=== PATIENT | male | born 1955 | race Caucasian/White ===

== ENCOUNTER 2016-06-24 | Emergency (ER) | payer OTHER | END 2016-06-24 16:42 | disposition home or self-care (01) ==

== ENCOUNTER 2021-06-14 17:02 | Emergency (ER) | payer MEDICARE, OTHER ==
[2021-06-14 17:17] VITALS: BP 200/100
[2021-06-14] MEDS ORDERED: predniSONE 20 MG TABLET PO STA (18:34)
--- NOTE | 2021-06-14 18:37 | ED Physician Documentation ---
History of Present Illness - Stated complaint Stated Complaint: RASH - Chief complaint Chief Complaint: General - History obtained from History obtained from: Patient - History of Present Illness Timing: Today Pain level max: 0 Pain level now: 0 - Additonal information Additional information: Patient is a 66-year-old male who presents to the emergency department complaint of a rash to the bilateral feet, lower legs, bilateral arms and back that started last night. Increased itching today. Has not taken anything for this. Nothing makes it better or worse. No new soaps, detergents, medications. He states he did eat a ice cream sandwich that had been by several years. Review of Systems Constitutional: denies: Fever, Chills Cardiac: denies: Chest pain / pressure, Palpitations Respiratory: denies: Cough GI: denies: Vomiting, Diarrhea Musculoskeletal: denies: Neck pain, Back pain Neurologic: denies: Headache PD PAST MEDICAL HISTORY - Past Medical History Cardiovascular: Hypertension - Present Medications Home Medications: Ambulatory Orders Medication Instructions Recorded Confirmed Aspirin [Aspirin EC] 81 mg PO DAILY 06/24/16 06/24/16 Metoprolol Tartrate 100 mg PO DAILY 06/24/16 06/24/16 Nifedipine [Nifedipine ER] 90 mg PO DAILY 06/24/16 06/24/16 Simvastatin [Zocor] 20 mg PO DAILY 06/24/16 06/24/16 Telmisartan/Hydrochlorothiazid 1 tab PO DAILY 06/24/16 06/24/16 [Micardis Hct 80-25 mg Tablet] predniSONE [Deltasone] 10 mg PO [id number] #42 tab 06/14/21 - Allergies Allergies/Adverse Reactions: Allergies Allergy/AdvReac Type Severity Reaction Status Date / Time No Known Drug Allergies Allergy Verified 06/14/21 17:13 - Social History Does the pt smoke?: Yes Smoking Status: Current every day smoker Does the pt drink ETOH?: No Does the pt have substance abuse?: No - Immunizations Immunizations are current?: Yes - POLST Patient has POLST: No PD ED PE NORMAL - Vitals Vital signs reviewed: Yes - General General: Alert and oriented X 3, No acute distress - HEENT HEENT: Moist mucous membranes - Neck Neck: Supple, no meningeal sign - Cardiac Cardiac: RRR - Respiratory Respiratory: No respiratory distress, Clear bilaterally - Derm Derm: Warm and dry, Other (There is a erythematous, blanching maculopapular exanthem over the bilateral lower legs, forearms and back. No pustules or blisters. No vesicles) - Neuro Neuro: Alert and oriented X 3 - Psych Psych: Normal mood, Normal affect Results - Vitals Vitals: Vital Signs - 24 hr 06/14/21 17:13 Temperature 36.5 C Heart Rate 100 Respiratory 16 Rate Blood Pressure 200/100 H O2 Saturation 97 Oxygen O2 Source Room air PD MEDICAL DECISION MAKING - ED course Complexity details: considered differential, d/w patient ED course: Patient with a rash of unclear etiology. We will trial him on steroids and see how he progresses. Patient is well-appearing, nontoxic. Afebrile. Patient counseled regarding signs and symptoms for which I believe and urgent re- evaluation would be necessary. Patient with good understanding of and agreement to plan and is comfortable going home at this time This document was made in part using voice recognition software. While efforts are made to proofread this document, sound alike and grammatical errors may occur. Departure - Departure Disposition: 01 Home, Self Care Clinical Impression: Dermatitis Condition: Good Instructions: ED Dermatitis Non Specific Rash Follow-Up: your,doctor in 1 week [Other] Prescriptions: predniSONE [Deltasone] 10 mg PO [id number] #42 tab Comments: Your prescriptions were sent to [facility] in [place]. Please take the steroids until gone. Return if you worsen. Discharge Date/Time: 06/14/21 18:47
== END 2021-06-14 18:47 | disposition home or self-care (01) ==
LOC: ED 17:02
DX: L30.9 Dermatitis, unspecified (principal); F17.200 Nicotine dependence, unspecified, uncomplicated
CPT/HCPCS: 99282; J7512

== ENCOUNTER 2021-09-14 15:02 | Outpatient (CLI) | payer MEDICARE, OTHER ==
[2021-09-14 16:11] VITALS: BP 176/75
--- NOTE | 2021-09-14 16:11 | SLEEP CARE CONSULTATION ---
Information from patient questionnaire entered by Magda Rubalcava MA. I have reviewed and concur with the information entered by Magda Rubalcava MA. This document represents the service I personally performed and the decisions made by , Claudia Talbert ARNP. History of Present Illness Service Date and Time: 09/14/2021 1502 Reason for Visit: New patient (ONSET 05/2014, ON CPAP, NEEDS CARD, ), Previously diagnosed sleep apnea, sleep apnea on CPAP therapy, Other (NEW SCRIPT FOR NEW MACHINE, ) Chief Complaint: reports: Other (establish care for CPAP) Date of Onset: N/A ON CPAP Usual bedtime: 1130 PM Time it takes to fall asleep: 10 to 15 minutes Snores at night: Yes Observed to quit breathing while asleep: Yes Number of times waking at night: 2-4 times, goes right back to sleep Toss, Turn, or Twitch while sleeping: Yes Recalls having dreams: Yes Usually gets out of bed at: 1000 AM Feels refreshed in the morning: Yes Morning headache: Yes Sleepy or fatigued during the day: Yes Ever fallen asleep while driving: No Takes day naps: No Dreams during day naps: No Prior sleep studies: No Year and Where: [facility] in [place], [place] in August 2014 Type of Sleep Study: Polysomnography Additional HPI information: LIBRA CUBA was previously diagnosed to have unknown, AHI unknown, sleep apnea- hypopnea syndrome and comes in today to establish care for CPAP therapy. - Parasomnia Symptoms Ever been unable to move upon waking from sleep: No Walks in sleep: No Talks in sleep: No Ever acted out dreams in sleep: No Ever felt weak in the knees when startled or emotional: No Bothered by creepy, crawly, restless sensations in legs: No Problems with memory or concentration: No CPAP Compliance Data - Data Reviewed with Patient Average duration of nightly device use: 8 HOURS 49 MINUTES Compliance rate %: 99 Current pressure setting (cmH2O): 10-11.6 Average residual AHI: 1.2 Central apnea: .1 Obstructive apnea: .8 Average large leak: 1.8 Compliance data discussion: He has been using [employer] for his supplies. He is using a full face, medium, ResMed mask. Subjective Patient concerns: reports: condensation in mask/hose (in mask/face; turned down humidifier). denies: aerophagia, mask discomfort, air blowing in eyes, mask leak noise, nasal congestion, dry mouth, nose, throat, epistaxis, other Observed to snore while using device: No Current pressure setting perceived as: comfortable On therapy, patient: reports: sleeping better, awakening more refreshed, being more awake and alert during the day, more rested overall. denies: drowsiness while driving Initial [place] Sleepiness Scale score: 5 (in 2021) Past Medical History Past Medical History: reports: Hypertension Social History The patient's occupation is a RE. Patient is and lives in [place]. Have you smoked in the past 12 months: No Cigarettes per day (20/pack): 20 Years of smokin Quit date: 1994 Smoking Pack Years: 20.0 Alcohol use: Yes Alcohol amount and frequency: 6 X WEEKLY Caffeine use: Yes Caffeine amount and frequency: 1 X DAILY Family History Family history of sleep disordered breathing: No Family Hx Sleep Apnea: Father: Snoring Allergies and Home Medications Known drug allergies: No Drug allergies reviewed: Yes (NKDA; hallucinations with high doses of morphine) Home medication list reviewed: Yes Allergy and home medication list: Allergies No Known Drug Allergies Allergy (Verified 06/14/21 17:13) Medications: Micardis/HCTZ 80mg/25mg, 1 daily Carvedilol 12.5 mg, 2x daily Simvastatin 20 mg, 1 daily Amlodipine 10 mg, 1 daily Low dose Aspirin, 81 mg, 1 daily Review of Systems Weight gain over past 5 years: 25-30 lbs Physical Exam Vital signs obtained and entered by: Virginia RUBALCAVA CMA [facility] Blood Pressure: 176/75 (PULSE 91, RESP 20, LEFT, ) Heart Rate: 94 O2 Saturation: 97 Height: 5 ft 10 in Weight: 302 lb Weight change since last visit: GAINED DURING TO COVID Body Mass Index: 43.3 BMI Classification: Morbidly Obese Neck circumference: 17.5 (INCHES) Heart: regular rate and rhythm Lungs: clear bilaterally Impression and Plan 1. Obstructive Sleep Apnea-Hypopnea Syndrome, unknown, with good treatment compliance and good apnea control. On CPAP therapy, the patient has better sleep quality and is more rested overall. We will obtain a copy of his sleep study. He needs to update his ResMed machine because it does have a error message stating the machine engine is past its life expectancy. He states it is working fine with good pressure but is no longer communicating data with the WiFi. He last had a sleep study done in August 2014 at [facility] in [place], [place]. We will obtain the study and I will order a new CPAP. The patients CPAP is over 5 years old and of reasonable use. Thus, the CPAP will be updated. A DWO prescription will be made. Compliance guidelines for new device and follow up discussed. Patient's apnea severity and rationale for treatment to reduce apnea, improve sleep quality and reduce cardiovascular and cerebrovascular events was reviewed. I also reviewed the benefit of consistent device use of CPAP for hypertension. * Continue auto CPAP pressure at 10-11.6 cmH2O * Update device * Update supplies as needed * Notify me if snoring with mask or feeling that the pressure is too much or too little * Attempt to lose weight * Call this office if any problems using CPAP * Return for follow up one month after obtaining new device, or sooner if concerns arise Counseling Topics: Weight loss health impact Visit Type: In Office Time Spent with Patient (minutes): 34 Provider Statement: I spent 100% of the Face to Face Visit with the patient with greater than 50% spent counseling the patient and coordination of care.
== END 2021-09-14 15:03 | disposition home or self-care (01) ==
LOC: SC 15:02
PROVIDERS: ATTEND Nurse Practitioner Family
DX: G47.33 Obstructive sleep apnea (adult) (pediatric) (principal); Z87.891 Personal history of nicotine dependence; E66.01 Morbid (severe) obesity due to excess calories; Z68.41 Body mass index [BMI] 40.0-44.9, adult
CPT/HCPCS: 99203; G0463; 99212

== ENCOUNTER 2021-11-05 13:48 | Outpatient (CLI) | payer MEDICARE, OTHER ==
--- NOTE | 2021-11-05 14:21 | SLEEP CARE CONSULTATION ---
Information from patient questionnaire entered by Magda Rubalcava MA. I have reviewed and concur with the information entered by Magda Rubalcava MA. This document represents the service I personally performed and the decisions made by , Claudia Talbert ARNP. History of Present Illness Service Date and Time: 11/05/2021 1348 Previous diagnosis: Extremely Severe, Obstructive Sleep Apnea-Hypopnea Syndrome AHI: 106.5 (in 2014) Reason for follow up: first compliance (resmed slater 10/01/2021,), first compliance after device update Equipment type: CPAP Equipment obtained from: [employer] (getting supplies as needed) Mask style: Full face Mask brand: Resmed ([id number]) Backup mask available: Yes (old mask) Last cushion change: less than month Prior sleep studies: No Year and Where: [facility] in [place], [place] in August 2014 Type of Sleep Study: Polysomnography HPI additional information: LIBRA CUBA was diagnosed to have extremely severe, AHI 106.5, obstructive sleep apnea-hypopnea syndrome and returned today for CPAP therapy first compliance after updating device follow-up. Sleep Study - Results Type of Sleep Study: Polysomnography Prior sleep studies: No Year and Where: [facility] in [place], [place] in August 2014 CPAP Compliance Data - Data Reviewed with Patient Average duration of nightly device use: 8 HOURS 37 MINUTES Compliance rate %: 100 (10/05/21-11/03/21; 30 days; days used) Current pressure setting (cmH2O): 10-11.6 Average residual AHI: 2.4 Central apnea: .4 Obstructive apnea: .6 Hypopnea: 1.4 Average large leak: 7.6 Subjective Patient concerns: denies: aerophagia, mask discomfort, air blowing in eyes, mask leak noise, condensation in mask/hose, nasal congestion, dry mouth, nose, throat, epistaxis, other Observed to snore while using device: No Current pressure setting perceived as: comfortable On therapy, patient: reports: sleeping better, awakening more refreshed, being more awake and alert during the day, more rested overall. denies: drowsiness while driving Initial [place] Sleepiness Scale score: 5 (in 2021) Current Kim Sleepiness Scale score: 1 (11/05/2021) Allergies and Home Medications Home medication list reviewed: Yes (no changes) Allergy and home medication list: Allergies No Known Drug Allergies Allergy (Verified 06/14/21 17:13) Review of Systems Review of systems same as previous: Yes (oral surg, 2 root canal repairs) Physical Exam Vital signs obtained and entered by: DERRELL Jones Blood Pressure: 120/74 (resp 18, pulse 89, left) Heart Rate: 82 O2 Saturation: 97 (mask) Height: 5 ft 10 in Weight: 300 lb 8 oz (clothes) Body Mass Index: 43.1 BMI Classification: Morbidly Obese Impression and Plan 1. Obstructive Sleep Apnea-Hypopnea Syndrome, extremely severe, with excellent treatment compliance and good apnea control. On CPAP therapy, the patient has better sleep quality and is more rested overall. Patient really likes his new device and has significant improvement of his sleep apnea. Patient denies problems with oral dryness, nasal congestion, epistaxis, skin irritation or aerophagia. Patient's apnea severity and rationale for treatment to reduce apnea, improve sleep quality and reduce cardiovascular and cerebrovascular events was reviewed. I also reviewed the benefit of consistent device use of CPAP for hypertension. 2. Obesity, unspecified. Currently patients BMI is 43.1. Obesity increases the risk of apnea, CPAP pressure requirements and overall health risks especially cardiovascular and diabetes. Thus patient is advised to lose weight. Weight loss can be done with reducing portion size, reducing refined foods and balancing content with vegetables, fruit and whole grain foods. In addition, patient encouraged to get regular exercise. * Continue auto CPAP pressure at 10-11.6 cmH2O * Notify me if snoring with mask or feeling that the pressure is too much or too little * Attempt to lose weight * Call this office if any problems using CPAP * Return for follow up in 1 year, or sooner if concerns arise Counseling Topics: Spare mask, Weight loss health impact Visit Type: In Office Time Spent with Patient (minutes): 20 Provider Statement: I spent 100% of the Face to Face Visit with the patient with greater than 50% spent counseling the patient and coordination of care.
[2021-11-05 14:22] VITALS: BP 120/74
== END 2021-11-05 13:49 | disposition home or self-care (01) ==
LOC: SC 13:48
PROVIDERS: ATTEND Nurse Practitioner Family
DX: G47.33 Obstructive sleep apnea (adult) (pediatric) (principal); E66.01 Morbid (severe) obesity due to excess calories; Z68.41 Body mass index [BMI] 40.0-44.9, adult
CPT/HCPCS: 99213; G0463; 99212

== ENCOUNTER 2022-11-29 13:59 | Outpatient (CLI) | payer MEDICARE, OTHER ==
--- NOTE | 2022-11-29 14:35 | Sleep Patient Instructions ---
Sleep Center Visit Summary - Patient Visit Information Reason for Visit: Annual followup for PAP therapy - Patient Instructions Additional Instructions: You will continue with CPAP therapy with pressure set at 10-11.6 cmH2O. A supply prescription will be updated with your DME. We encourage you to continue to try to lose weight. Please follow up with the sleep care office in 1 year. - Clinic Information Contact: [facility] [address] [place] [address] [email or web address] T: [phone]
--- NOTE | 2022-11-30 07:38 | SLEEP CARE CONSULTATION ---
Information from patient questionnaire entered by Leta Sorto. I have reviewed and concur with the information entered by Leta Sorto. This document represents the service I personally performed and the decisions made by , Claudia Talbert ARNP. History of Present Illness Service Date and Time: 11/29/2022 1359 Previous diagnosis: Extremely Severe, Obstructive Sleep Apnea-Hypopnea Syndrome AHI: 106.5 (in 2014) Reason for follow up: annual (LAST SEEN 11/2021) Equipment type: CPAP (ResMed Airsense 11, s/u 09/2021) Equipment obtained from: [employer] (getting supplies as needed) Mask style: Full face Mask brand: Resmed (F20) Backup mask available: Yes (old mask) Last cushion change: 6 weeks Prior sleep studies: Yes Year and Where: [facility] in [place], [place] in August 2014 Type of Sleep Study: Polysomnography HPI additional information: LIBRA CUBA was diagnosed to have extremely severe, AHI 106.5, obstructive sleep apnea-hypopnea syndrome and returned today for CPAP therapy annual follow-up. Sleep Study - Results Type of Sleep Study: Polysomnography Prior sleep studies: No Year and Where: [facility] in [place], [place] in August 2014 CPAP Compliance Data - Data Reviewed with Patient Average duration of nightly device use: 8 HRS 36 MIN Compliance rate %: 99 (05/29/22-11/24/22; 180/180 days used) Current pressure setting (cmH2O): 10-11.6 Average residual AHI: 1.8 Central apnea: 0.1 Obstructive apnea: 0.5 Hypopnea: 1.1 Average large leak: 0.1 L/min Subjective Missed days of use due to: reports: illness (resp illness), other (power outage) Patient concerns: reports: condensation in mask/hose (tolerable). denies: aerophagia, mask discomfort, air blowing in eyes, mask leak noise, nasal congestion, dry mouth, nose, throat, epistaxis Observed to snore while using device: No Current pressure setting perceived as: comfortable On therapy, patient: reports: sleeping better, awakening more refreshed, being more awake and alert during the day, more rested overall. denies: drowsiness while driving Initial [place] Sleepiness Scale score: 5 (in 2021) Current [place] Sleepiness Scale score: 4 (11/29/22) Allergies and Home Medications Known drug allergies: No Drug allergies reviewed: Yes Home medication list reviewed: Yes (no changes) Allergy and home medication list: Allergies No Known Drug Allergies Allergy (Verified 11/28/22 15:25) Review of Systems Review of systems same as previous: Yes (no changes) Physical Exam Vital signs obtained and entered by: LETA Chaudhry MA Blood Pressure: 152/90 (LEFT ARM) Cuff size: regular Heart Rate: 89 O2 Saturation: 97 Height: 5 ft 10 in Weight: 291 lb Body Mass Index: 41.7 BMI Classification: Morbidly Obese Impression and Plan 1. Obstructive Sleep Apnea-Hypopnea Syndrome, extremely severe, with good treatment compliance and good apnea control. On CPAP therapy, the patient has better sleep quality and is more rested overall. He states the new mask he got with his Airsense 11 will leak when he turns on his side. I advised that he try to get a CPAP pillow to use to reduce dislodging of the mask. He voiced understanding. Patient has significant improvement of their sleep apnea and is satisfied with current CPAP therapy. Patient denies problems with oral dryness, nasal congestion, epistaxis, skin irritation or aerophagia. Patient's apnea severity and rationale for treatment to reduce apnea, improve sleep quality and reduce cardiovascular and cerebrovascular events was reviewed. I also reviewed the benefit of consistent device use of CPAP for hypertension. 2. Obesity, unspecified. Currently patients BMI is 41.7. Obesity increases the risk of apnea, CPAP pressure requirements and overall health risks especially cardiovascular and diabetes. Thus patient is advised to lose weight. * Continue auto CPAP pressure at 10-11.6 cmH2O * Update supplies * Notify me if snoring with mask or feeling that the pressure is too much or too little * Attempt to lose weight * Call this office if any problems using CPAP * Return for follow up in 1 year, or sooner if concerns arise Counseling Topics: Spare mask, Weight loss health impact Visit Type: In Office Time Spent with Patient (minutes): 25 Provider Statement: I spent 100% of the Face to Face Visit with the patient with greater than 50% spent counseling the patient and coordination of care.
[2022-11-30 07:47] VITALS: BP 152/90
== END 2022-11-29 14:00 | disposition home or self-care (01) ==
LOC: SC 13:59
PROVIDERS: ATTEND Nurse Practitioner Family
DX: G47.33 Obstructive sleep apnea (adult) (pediatric) (principal); E66.01 Morbid (severe) obesity due to excess calories; Z68.41 Body mass index [BMI] 40.0-44.9, adult
CPT/HCPCS: 99213; G0463; 99212

== ENCOUNTER 2022-12-06 09:04 | Outpatient (CLI) | payer MEDICARE, OTHER ==
--- NOTE | 2022-12-06 18:14 | Ultrasound Report ---
PROCEDURE: Aorta Screening INDICATIONS: AAA SCREENING TECHNIQUE: Real time scanning was performed of the aorta and iliac arteries, with image documentatio n. COMPARISON: None. FINDINGS: Aorta: Proximal aortic diameter measures 1.9 cm. Mid-aorta measures 1.8 cm. Distal aortic diameter is 1.9 cm. Iliac arteries: Right common iliac artery measures 1.8 cm. Left common iliac artery measures 1.5 cm . IMPRESSION: Negative screening in ultrasound for abdominal aortic aneurysm. Recommended intervals for follow-up imaging of ectatic aortas and abdominal aortic aneurysms, per ACR consensus guidelines: 2.5-2.9 cm: 5 years 3.0-3.4 cm: 3 years 3.5-3.9 cm: 2 years 4.0-4.4 cm: 1 year 4.5-4.9 cm: 6 months + endovascular referral 5.0-5.5 cm: 3-6 months + endovascular referral Reviewed by: Armand Singh MD on 12/06/2022 6:12 PM PDT Approved by: Armand Singh MD on 12/06/2022 6:12 PM PDT Station ID: [id number]
== END 2022-12-06 09:05 | disposition home or self-care (01) ==
LOC: DI 09:04
PROVIDERS: ATTEND Nurse Practitioner Family
DX: Z13.6 Encounter for screening for cardiovascular disorders (principal)

== ENCOUNTER 2023-06-26 07:24 | Day surgery (SDC) | payer MEDICARE, OTHER ==
[2023-06-26] MEDS: LACTATED RINGERS 1,000 ML IV ONE (07:37)
[2023-06-26] MEDS ORDERED: PROPOFOL 500 MG/50 ML 500 MG/50 ML VIAL ONE (08:21)
--- NOTE | 2023-06-26 08:42 | ANESTHESIA ---
Pre-Anesthesia VS, & Labs - Diagnosis positive FIT test, screening exam - Procedure colonoscopy Vital Signs: Temp Pulse Resp BP Pulse Ox O2 Flow Rate 37.0 C 84 17 153/102 H 97 06/26/23 07:37 06/26/23 07:37 06/26/23 07:37 06/26/23 07:37 06/26/23 07:37 Height: 5 ft 9 in Weight (kg): 130.5 kg Body Mass Index: 42.5 BMI Classification: Morbidly Obese - NPO Last Fluid Intake: 0530 water Home Medications and Allergies Aspirin [Aspirin EC] 81 mg PO DAILY 06/24/16 Metoprolol Tartrate 100 mg PO DAILY 06/24/16 Simvastatin [Zocor] 20 mg PO DAILY 06/24/16 Telmisartan/Hydrochlorothiazid [Micardis Hct 80-25 mg Tablet] 1 tab PO DAILY 06/24/16 Allergies/Adverse Reactions: Allergies Allergy/AdvReac Type Severity Reaction Status Date / Time No Known Drug Allergies Allergy Verified 11/29/22 14:09 Anes History & Medical History - Anesthetic History Anesthesia Complications: reports: No previous complications - Medical History Cardiovascular: reports: Hypertension, High cholesterol Pulmonary: reports: Sleep apnea, CPAP use Gastrointestinal: reports: GERD Urinary: reports: None Neuro: reports: None Musculoskeletal: reports: None Endocrine/Autoimmune: reports: None Skin: reports: None Smoking Status: Current every day smoker Psychosocial: reports: Alcohol (6 pack of beer per week) History of Cancer?: No - Surgical History General: reports: Colonoscopy, Other Exam General: Alert, Oriented x3, Cooperative, No acute distress Dental: WNL Mouth Openin Fingerbreadth Neck Mobility: Normal Mallampati classification: III Thyromental Distance: 4-6 cm Mental/Cognitive Status: Alert/Oriented X3, Normal for patient Plan Anesthesia Type: General, Total IV Consent for Procedure(s) Verified and Reviewed: Yes Code Status: Attempt Resuscitation ASA classification: 3-Severe systemic disease Is this case an emergency?: No
[2023-06-26] MEDS ORDERED: MIDAZOLAM 2 MG/2 ML VIAL ONE (08:56)
[2023-06-26] MEDS: LACTATED RINGERS 50 ML IV ONE (10:58)
[2023-06-26 11:19] VITALS: BP 145/84; O2SAT 98
[2023-06-26] MEDS ORDERED: PROPOFOL 200 MG/20 ML VIAL IVP ONE ×5 (12:13)
--- NOTE | 2023-06-27 16:55 | ANESTHESIA POST OP EVALUATION ---
Anesthesia Post Eval - Post Anesthesia Eval Vitals: Last Vital Signs Temp 36.6 C 06/26/23 11:08 Pulse 78 06/26/23 11:08 Resp 16 06/26/23 11:08 BP 145/84 H 06/26/23 11:08 Pulse Ox 98 06/26/23 11:08 O2 Flow Rate CV Function Including HR & BP: Stable Pain Control: Satisfactory Nausea & Vomiting: Negative Mental Status: Baseline Respiratory Status: Airway Patent Hydration Status: Satisfactory Anesthesia Complications: None
== END 2023-06-26 07:25 | disposition home or self-care (01) ==
LOC: SDS 07:24
PROVIDERS: ATTEND Surgery
PROC: 0DBN8ZZ Excision of Sigmoid Colon, Via Natural or Artificial Opening Endoscopic (ICD-10-PCS; 2023-06-26)
PROC: 0DBM8ZZ Excision of Descending Colon, Via Natural or Artificial Opening Endoscopic (ICD-10-PCS; 2023-06-26)
PROC: 0DBH8ZZ Excision of Cecum, Via Natural or Artificial Opening Endoscopic (ICD-10-PCS; principal; 2023-06-26 09:00)
DX: Z12.11 Encounter for screening for malignant neoplasm of colon (principal); R19.5 Other fecal abnormalities; D12.5 Benign neoplasm of sigmoid colon; D12.0 Benign neoplasm of cecum; K57.30 Diverticulosis of large intestine without perforation or abscess without bleeding; D12.4 Benign neoplasm of descending colon; E66.01 Morbid (severe) obesity due to excess calories; Z68.41 Body mass index [BMI] 40.0-44.9, adult; F17.200 Nicotine dependence, unspecified, uncomplicated; G47.33 Obstructive sleep apnea (adult) (pediatric)
CPT/HCPCS: 45385; J7120

== ENCOUNTER 2023-11-30 12:48 | Outpatient (CLI) | payer MEDICARE, OTHER ==
--- NOTE | 2023-11-30 13:17 | Sleep Patient Instructions ---
Sleep Center Visit Summary - Patient Visit Information Reason for Visit: Annual follow up - Patient Instructions Additional Instructions: You will continue with CPAP therapy with pressure set at 17-20 cmH2O. A supply prescription will be updated with your DME. We encourage you to continue to try to lose weight. Please follow up with the sleep care office in 1 year. - Clinic Information Contact: [facility] [address] [place] [address] [email or web address] T: [phone]
--- NOTE | 2023-11-30 13:31 | SLEEP CARE CONSULTATION ---
Information from patient questionnaire entered by Leta Sorto. I have reviewed and concur with the information entered by Leta Sorto. This document represents the service I personally performed and the decisions made by , Claudia Talbert ARNP. History of Present Illness Service Date and Time: 11/30/2023 1248 Previous diagnosis: Extremely Severe, Obstructive Sleep Apnea-Hypopnea Syndrome AHI: 106.5 (in 2014) Reason for follow up: annual (LAST SEEN 11/2022) Equipment type: CPAP (ResMed Airsense 11, s/u 09/2021) Equipment obtained from: [employer] (getting supplies as needed) Mask style: Full face (F10?) Backup mask available: Yes Last cushion change: 1 month Prior sleep studies: No Year and Where: [facility] in [place], [place] in August 2014 Type of Sleep Study: Polysomnography HPI additional information: LIBRA CUBA was diagnosed to have extremely severe, AHI 106.5, obstructive sleep apnea-hypopnea syndrome and returned today for CPAP therapy annual follow-up. Sleep Study - Results Type of Sleep Study: Polysomnography Prior sleep studies: No Year and Where: [facility] in [place], [place] in August 2014 CPAP Compliance Data - Data Reviewed with Patient Average duration of nightly device use: 8 HRS 55 MINS Compliance rate %: 98 (11/28/22-11/27/23; 356/365 days used) Current pressure setting (cmH2O): 10-11.6 Average residual AHI: 1.3 Central apnea: 0.1 Obstructive apnea: 0.3 Hypopnea: 0.8 Subjective Missed days of use due to: reports: other (DENTAL PAIN) Patient concerns: denies: aerophagia, mask discomfort, air blowing in eyes, mask leak noise, condensation in mask/hose, nasal congestion, dry mouth, nose, throat, epistaxis Observed to snore while using device: No Current pressure setting perceived as: comfortable On therapy, patient: reports: sleeping better, awakening more refreshed, being more awake and alert during the day, more rested overall. denies: drowsiness while driving Initial [place] Sleepiness Scale score: 5 (in 2021) Current [place] Sleepiness Scale score: 3 (11/30/23) Allergies and Home Medications Known drug allergies: No Drug allergies reviewed: Yes Home medication list reviewed: Yes (no changes) Allergy and home medication list: Allergies No Known Drug Allergies Allergy (Verified 11/30/23 12:51) Review of Systems Review of systems same as previous: Yes (NO CHANGE) Physical Exam Vital signs obtained and entered by: LETA Chaudhry MA Blood Pressure: 175/104 (pt has whitecoat) Heart Rate: 95 O2 Saturation: 98 Height: 5 ft 9 in Weight: 287 lb 9.6 oz (PER PT) Weight change since last visit: 4 lb loss Body Mass Index: 42.5 BMI Classification: Morbidly Obese Impression and Plan 1. Obstructive Sleep Apnea-Hypopnea Syndrome, extremely severe, with good treatment compliance and good apnea control. On CPAP therapy, the patient has better sleep quality and is more rested overall. He has significant improvement of his sleep apnea and satisfied with current CPAP therapy. He does try and track his AHI and large leaks to know when to change his mask and is regularly cleaning his machine and supplies. Patient's apnea severity and rationale for treatment to reduce apnea, improve sleep quality and reduce cardiovascular and cerebrovascular events was reviewed. I also reviewed the benefit of consistent device use of CPAP for cardiac disease (CHF). 2. Obesity, unspecified. Currently patients BMI is 42.5. He has lost weight. Obesity increases the risk of apnea, CPAP pressure requirements and overall health risks especially cardiovascular and diabetes. Thus patient is advised to continue to try to lose weight. * Continue auto CPAP pressure at 10-11.6 cmH2O * Update supply prescription * Notify me if snoring with mask or feeling that the pressure is too much or too little * Attempt to lose weight * Call this office if any problems using CPAP * Return for follow up in 12 months, or sooner if concerns arise Counseling Topics: Spare mask, Weight loss health impact Prescriptions: Device supplies Follow up with Sleep Care in: 1 year Visit Type: In Office Time Spent with Patient (minutes): 22 Provider Statement: I spent 100% of the Face to Face Visit with the patient with greater than 50% spent counseling the patient and coordination of care.
[2023-11-30 13:37] VITALS: BP 175/104; O2SAT 98
== END 2023-11-30 12:49 | disposition home or self-care (01) ==
LOC: SC 12:48
PROVIDERS: ATTEND Nurse Practitioner Family
DX: G47.33 Obstructive sleep apnea (adult) (pediatric) (principal); E66.01 Morbid (severe) obesity due to excess calories; Z68.41 Body mass index [BMI] 40.0-44.9, adult
CPT/HCPCS: 99213; G0463; 99212